=== PATIENT | female | born 2000 | race Asian ===

== ENCOUNTER 2019-03-17 22:40 | Emergency (ER) | payer OTHER ==
[2019-03-18 00:09] LABS: Urine Appearance Turbid; Urine Bacteria Absent (Absent); Urine Bilirubin Negative (Negative); Urine Blood 3+ (Negative); Urine Color Yellow; Urine Glucose Negative (Negative); Urine Ketones Negative (Negative); Urine Nitrite Negative (Negative); Urine Protein 2+(100 mg/dL) (Negative); Urine Red Blood Cell 3+(>10/hpf) (Absent); Urine Specific Gravity 1.014 (1.010-1.030); Urine Urobilinogen Negative (Negative); Urine White Blood Cell 3+(>20/hpf) (Absent)
--- NOTE | 2019-03-18 01:12 | ED ---
GI/ HPI - HPI Summary HPI Summary: This patient is a 18 year old female presenting to [facility] with a chief complaint of possible UTI since one day ago. The patient reports hematuria, burning, and urinary frequency. The patient denies fevers and nausea. She states she has them often with the last one being 3 months ago. Her LNMP was 3 weeks ago. - History of Current Complaint Chief Complaint: EDUrogenitalProblems Time Seen by Provider: 03/18/19 00:58 Stated Complaint: BAD UTI PAINS PER PATIENT Hx Obtained From: Patient Onset/Duration: Started Days Ago Timing: Constant Pain Intensity: 7 - Allergy/Home Medications Allergies/Adverse Reactions: Allergies Allergy/AdvReac Type Severity Reaction Status Date / Time No Known Allergies Allergy Verified 03/17/19 22:54 PMH/Surg Hx/FS Hx/Imm Hx Cardiovascular History: Denies: Hx Coronary Artery Disease Musculoskeletal History: Denies: Hx Arthritis Infectious Disease History: No Infectious Disease History: Denies: Traveled Outside the [place] in Last 30 Days - Family History Known Family History: Negative: Cardiac Disease, Hypertension - Social History Alcohol Use: ETOH intoxication Substance Use Type: Reports: None Substance Use Comment - Amount & Last Used: unknown Smoking Status (MU): Unknown if Ever Smoked Review of Systems - ROS Summary Review of Systems Summary: None Negative: Fever Negative: Nausea Positive: burning, frequency, hematuria All Other Systems Reviewed And Are Negative: Yes Physical Exam - Summary Physical Exam Summary: General: Well-developed, thin FEMALE. No acute distress. HEENT: Normocephalic, Atraumatic. Eyes: Conjuctiva normal, PERRL. Ears: TMs within normal limits. Nares: (-) discharge, (-) erythema. Oropharynx: Clear, mucous membranes moist, (-) exudates. Neck: Soft, FROM, (-) lymphadenopathy, (-) thyromegaly, (-) JVD. Cardiovascular: Normal sinus rhythm, (-) murmur. Lungs: Clear to auscultation bilaterally (-) wheezes, (-) rales, (-) rhonchi. Abdomen: Soft, non-tender, non-distended, (-) organomegaly, normal bowel sounds. Back: (-) CVA tenderness Extremities: No edema. Skin: Warm, dry, (-) rash. Large ecchymosis on upper right proximal douglas. Small ecchymosis on left proximal douglas. Neuro: Alert and oriented x3, no focal deficits. Psychiatric: Mildly anxious. Triage Information Reviewed: Yes Vital Signs On Initial Exam: Initial Vitals Temp Pulse Resp BP Pulse Ox 99.1 F 88 16 139/44 97 03/17/19 22:50 03/17/19 22:50 03/17/19 22:50 03/17/19 22:50 03/17/19 22:50 Vital Signs Reviewed: Yes Procedures - Sedation Patient Received Moderate/Deep Sedation with Procedure: No Diagnostics - Vital Signs Vital Signs Temp Pulse Resp BP Pulse Ox 03/17/19 22:50 99.1 F 88 16 139/44 97 - Laboratory Lab Results: Lab Results 03/17/19 Range/Units 23:49 Urine Color Yellow Urine Appearance Turbid Urine pH 6.0 (5-9) Ur Specific [place] 1.014 (1.010-1.030) Urine Protein 2+(100 mg/dl) A (Negative) Urine Ketones Negative (Negative) Urine Blood 3+ A (Negative) Urine Nitrate Negative (Negative) Urine Bilirubin Negative (Negative) Urine Urobilinogen Negative (Negative) Ur Leukocyte Esterase 3+ A (Negative) Urine WBC (Auto) 3+(>20/hpf) A (Absent) Urine RBC (Auto) 3+(>10/hpf) A (Absent) Urine Bacteria Absent (Absent) Urine Glucose Negative (Negative) Lab Statement: Any lab studies that have been ordered have been reviewed, and results considered in the medical decision making process. GIGU Course/Dx - Course Course Of Treatment: This patient is a 18 year old female presenting to [facility] with a chief complaint of possible UTI since one day ago. Urinalysis reveals Urine Protein 2+ A, Urine Blood 3+ A, Ur Leukocyte Esterase 3+ A, Urine WBC 3+ A , Urine WBC 3+A, Urine RBC 3+ A. The patient will be described Bactrim and discharged. This plan was discussed with the patient and she was agreeable with this plan. - Diagnoses Provider Diagnoses: UTI (urinary tract infection) Discharge ED - Sign-Out/Discharge Documenting (check all that apply): Patient Departure - Discharge - Discharge Plan Condition: Stable Disposition: HOME Prescriptions: Sulfamethox/Trimethoprim DS* [Bactrim DS 800/160 TAB*] 1 tab PO BID 7 Days #14 tab Patient Education Materials: Urinary Tract Infection in Women (ED) Additional Instructions: Return to ED with any new or worsening symptoms. Take medications as prescribed. Drink plenty of fluids. - Billing Disposition and Condition Condition: STABLE Disposition: Home - Attestation Statements Document Initiated by Denny: Yes Documenting Scribe: Hosea Paz Provider For Whom Denny is Documenting (Include Credential): Lucero Bear MD Scribe Attestation: IHosea, scribed for Lucero Bear MD on 03/18/19 at 0257. Scribe Documentation Reviewed: Yes Provider Attestation: The documentation as recorded by the Hosea booker accurately reflects the service I personally performed and the decisions made by me, Lucero Bear MD Status of Scribe Document: Viewed
[2019-03-18] MEDS ORDERED: Sulfamethox/Trimethoprim DS 800/160* TAB PO ONE (01:13)
[2019-03-18 01:31] VITALS: BP 119/72
== END 2019-03-18 01:30 | disposition home or self-care (01) ==
LOC: ED 22:40
DX: N39.0 Urinary tract infection, site not specified (principal); R31.9 Hematuria, unspecified
CPT/HCPCS: 81003; 81015; 87077; 87086; 87186; 99282; A9270-GY